=== PATIENT | female | born 1975 | race African-American/Black ===

== ENCOUNTER 2019-04-06 09:56 | Emergency (ER) | payer OTHER ==
[2019-04-06 10:09] VITALS: BP 155/91; PULSE 96; TEMP 98.9; BMI 29.9
--- NOTE | 2019-04-06 12:12 | PDOC ---
Documentation entered by Marli Merritt SCRIBE, acting as scribe for Arleen Corea MD. Arleen Corea MD: This documentation has been prepared by the scribe, Marli Merritt SCRIBE, under my direction and personally reviewed by me in its entirety. I confirm that the documentation accurately reflects all work, treatment, procedures, and medical decision making performed by me. History of Present Illness - General Chief Complaint: Suicidal Stated Complaint: Suicidal Time Seen by Provider: 04/06/19 10:26 History Source: Patient Exam Limitations: No Limitations - History of Present Illness Initial Comments: 43 yo F history depression presents with depressive symptoms, reported SI this morning. She states that she is estranged from her 24 year old daughter, which has caused significant emotional distress. She was previously going to weekly therapy at [facility] as an outpatient for this, but she had to stop because her responsibilities and hours at work changed and she could not longer make appointments during their outpatient hours. As a result of this, she has been unable to take her medication as well, as she usually got her refills there. She has been off her trazodone and prozac since her job changed. She states she woke up this morning and just did not care. She states that she does not want to kill herself and does not have a specific plan, but she felt this profound apathy. She also states that her job is the main source of her problem, as it has prevented her from going to therapy and getting her medication. Past History - Past Medical History Allergies/Adverse Reactions: Allergies Allergy/AdvReac Type Severity Reaction Status Date / Time No Known Allergies Allergy Verified 04/06/19 10:04 Home Medications: Ambulatory Orders Albuterol Sulfate Inhaler - [Ventolin HFA Inhaler -] 1 - 2 inh PO QID #1 inhaler 04/14/15 Azithromycin [Zithromax Z-LADI (5 DAYS) -] 250 mg PO ASDIR #6 tablet 04/14/15 Fluoxetine HCl [Prozac -] 20 mg PO DAILY #30 capsule 04/06/19 traZODone HCL [Trazodone HCl] 50 mg PO HS #30 tablet 04/06/19 COPD: No Psychiatric Problems: Yes (depression) - Immunization History Immunization Up to Date: Yes - Suicide/Smoking/Psychosocial Hx Smoking History: Never smoked Hx Alcohol Use: No Drug/Substance Use Hx: No Substance Use Type: None Review of Systems - Review of Systems Able to Perform ROS?: Yes Comments:: GENERAL/CONSTITUTIONAL: No fever or chills. No weakness. HEAD, EYES, EARS, NOSE AND THROAT: No change in vision. No ear pain or discharge. No sore throat. CARDIOVASCULAR: No chest pain or shortness of breath. RESPIRATORY: No cough, wheezing, or hemoptysis. GASTROINTESTINAL: No nausea, vomiting, diarrhea or constipation. GENITOURINARY: No dysuria, frequency, or change in urination. MUSCULOSKELETAL: No joint or muscle swelling or pain. No neck or back pain. SKIN: No rash. NEUROLOGIC: No headache, vertigo, loss of consciousness, or change in strength/ sensation. ENDOCRINE: No increased thirst. No abnormal weight change. HEMATOLOGIC/LYMPHATIC: No anemia, easy bleeding, or history of blood clots. ALLERGIC/IMMUNOLOGIC: No hives or skin allergy. PSYCHIATRIC: No HI, no AH/VH. +SI. *Physical Exam - Vital Signs Last Vital Signs Temp Pulse Resp BP Pulse Ox 98.9 F 96 H 20 155/91 99 04/06/19 10:04 04/06/19 10:04 04/06/19 10:04 04/06/19 10:04 04/06/19 10:04 - Physical Exam Comments: GENERAL: Awake, alert, and fully oriented, in no acute distress HEAD: No signs of trauma EYES: PERRLA, EOMI, sclera anicteric, conjunctiva clear ENT: Auricles normal inspection, hearing grossly normal, nares patent, oropharynx clear without exudates. Moist mucosa NECK: Normal ROM, supple, no lymphadenopathy, JVD, or masses LUNGS: Breath sounds equal, clear to auscultation bilaterally. No wheezes, and no crackles HEART: Regular rate and rhythm, normal S1 and S2, no murmurs, rubs or gallops ABDOMEN: Soft, nontender, normoactive bowel sounds. No guarding, no rebound. No masses EXTREMITIES: Normal range of motion, no edema. No clubbing or cyanosis. No cords, erythema, or tenderness NEUROLOGICAL: Cranial nerves II through XII grossly intact. Normal speech, normal gait. Motor and sensation intact SKIN: Warm, dry, normal turgor, no rashes or lesions noted. PSYCHIATRIC: Depressed affect. Endorses SI without specific plan. Thought process is linear, she is goal-directed. Medical Decision Making - Medical Decision Making 04/06/19 12:10 Lengthy discussion with patient at bedside. While she does feel this profound sense of apathy, she also is making plans for future. She acknowledges that she needs outpatient therapy and medication to function well, and as a result of changes in her job, those things are no longer possible. She states she wants to look for a different job with hours that are more conducive to her pursuing her outpatient care. She also will restart her medication, which I will prescribe today in the ED. She will call Junaid to schedule an appointment for this week, for which I will give her a work note. As she is goal-directed, has plans to make things better, and can see the possibility of improvement if she makes some changes, I feel it is safe to discharge her to home. She has family support (she is still close friends with her 14 year old daughter's father, and he is available for help if she needs him. She does not want to be hospitalized today, and I do not feel it is necessary as well. She agrees to return to ED immediately if she does not have any improvement or if she has any concerns. *DC/Admit/Observation/Transfer Diagnosis at time of Disposition: Depression Qualifiers: Depression Type: unspecified Qualified Code(s): F32.9 - Major depressive disorder, single episode, unspecified - Discharge Dispostion Disposition: HOME Condition at time of disposition: Stable Decision to Admit order: No - Prescriptions Prescriptions: Fluoxetine HCl [Prozac -] 20 mg PO DAILY #30 capsule traZODone HCL [Trazodone HCl] 50 mg PO HS #30 tablet - Referrals - Patient Instructions Printed Discharge Instructions: DI for Depression -- Adult Additional Instructions: If at any time you feel you might be a harm to yourself, please return to the ER immediately or call 911. Please resume your medication today. Follow up with Toya within 1 week to resume treatment. - Post Discharge Activity Forms/Work/School Notes: Back to Work, My Personal Safety Plan
== END 2019-04-06 12:36 | disposition home or self-care (01) ==
LOC: JER 09:56
DX: F32.9 Major depressive disorder, single episode, unspecified (principal)
CPT/HCPCS: 99281-25